=== PATIENT | male | born 1930 | race African-American/Black ===

== ENCOUNTER 2016-10-02 19:46 | Inpatient (IN) | payer MEDICAID, MEDICARE ==
[~2016-10-02] VITALS: Ht 175.3 cm; Wt 77.6 kg
[2016-10-02] MEDS ORDERED: FENT1PAT2 TD (19:57)
[2016-10-02] MEDS ORDERED: BENA20TA2 PO (19:57)
[2016-10-02] MEDS ORDERED: OXYC-128 PO (19:57)
[2016-10-02] MEDS ORDERED: BRIM5DRO3 OP (19:57)
[2016-10-02] MEDS ORDERED: ATOR20TA PO (19:57)
[2016-10-02] MEDS ORDERED: ASPI81TA31 PO (19:57)
[2016-10-02] MEDS ORDERED: QUET25TA PO (19:57)
[2016-10-02] MEDS ORDERED: CHOL10002 PO (19:57)
[2016-10-02] MEDS ORDERED: CLOP75TA33 PO (19:57)
--- NOTE | 2016-10-02 20:11 | NUR ---
Pt BIB private ambulance from [facility]. Pt is medically clear now, on 5150 hold for danger to others. Pt denies SI, HI, hallucinations. No complaints from pt, no distress noted.
--- NOTE | 2016-10-02 20:25 | NUR ---
Obtained full report from MICHAEL Samaniego RN.
--- NOTE | 2016-10-02 20:25 | NUR ---
called report to Leydi
--- NOTE | 2016-10-02 20:55 | NUR ---
Admit patient to MHU in [facility] with Dx. Psychosis. Patient is on a 5150 hold d/t GD. Hold started on 10/02/16 at 1700 and will end on 10/05/16 at 1700. Patient is A/O x 1 and able to ambulated with slow but steady gait. Medication were reconcile. Patient was calm and cooperative at time of admission; however, he refused full body assessment. we will continue to encourage.
[2016-10-02] MEDS ORDERED: ZOLPIDEM 5 MG TABLET PO PRN (21:15)
[2016-10-02] MEDS ORDERED: MAG HYDROX/AL HYDROX/SIMETH 30 ML LIQUID UDC PO PRN (21:15)
[2016-10-02] MEDS ORDERED: LORAZEPAM 0.5 MG TABLET PO PRN (21:15)
[2016-10-02] MEDS ORDERED: MAGNESIUM HYDROXIDE 30 ML LIQUID UDC PO PRN (21:15)
[2016-10-02] MEDS ORDERED: ACETAMINOPHEN 325 MG TABLET PO PRN (21:15)
[2016-10-03 00:55] VITALS: BP 152/75
--- NOTE | 2016-10-03 02:30 | NUR ---
AT APPROX 2055 ON 10/02/16, ADMIT PATIENT TO [facility] WITH DX. PSYCHOSIS. PATIENT IS ON 5150 HOLD DUE TO GD. HOLD STARTED ON 10/02/16 AT 1700 AND WILL END ON 10/05/16 AT 1700. PATIENT WAS CALM AND COOPERATIVE AT TIME OF ADMISSION; HOWEVER HE REFUSED FULL BODY ASSESSMENT. WE WILL CONTINUE TO ENCOURAGED. MEDICATIONS WERE RECONCILE. NEXT OF KIN WAS NOTIFY.
--- NOTE | 2016-10-03 06:05 | NUR ---
Patient slept for about 6 hours. He was calm; however, full body assessment was limited due to patient poor compliant with assessment. Multiples tattoos were visible in both sides of upper arms lateral aspect. one tattoo noted in left posterior fingers, one in upper back, and few in upper chest. we will continue to monitor.
--- NOTE | 2016-10-03 07:13 | NUR ---
per daughter Alisia, patient is to keep his watch on. She stated that he may get agitative if staff try to removed watch.
--- NOTE | 2016-10-03 07:25 | NUR ---
Left message to Chief Lock Operator re:new admission at [phone].
[2016-10-03 07:54] VITALS: BP 136/65
[2016-10-03] MEDS ORDERED: OXYCODONE/APAP 5-325 MG TABLET PO PRN (10:15)
[2016-10-03] MEDS ORDERED: BRIMONIDINE-P 0.1% OPHTH DROP 5 ML DROPS OP SCH (10:15)
[2016-10-03] MEDS: CHOLECALCIFEROL 1,000 UNIT TABLET PO SCH (11:28)
[2016-10-03] MEDS: CLOPIDOGREL 75 MG TABLET PO SCH (11:28)
[2016-10-03] MEDS: BENAZEPRIL HCL 20 MG TABLET PO SCH (11:44)
[2016-10-03] MEDS: ASPIRIN 81 MG TAB.CHEW PO SCH (11:45)
[2016-10-03] MEDS: BRIMONIDINE 0.2% OPHT DROP 10 ML BOTTLE EACHEYE SCH ×2 (13:18→18:24)
[2016-10-03 20:13] VITALS: BP 100/54
[2016-10-03] MEDS: QUETIAPINE FUMARATE 25 MG TABLET PO SCH (20:33)
[2016-10-03] MEDS: ATORVASTATIN 20 MG TABLET PO SCH (20:34)
--- NOTE | 2016-10-04 07:23 | NUR ---
patient slept approx 9hrs through the night. He is calm and cooperative. medication compliant. no behavioral problems noted or reported during the shift. he is A/O x 1, he is able to ambulate and use the toilet. we will continue to monitor.
[2016-10-04 07:30] VITALS: BP 118/61
[2016-10-04 08:10] LABS: BASOPHILS # (AUTO) 0.1 K/uL (0.0-8.0); BASOPHILS % (AUTO) 0.7 % (0.0-2.0); EOSINOPHILS # (AUTO) 0.5 K/uL (0.0-0.7); EOSINOPHILS % (AUTO) 6.7 % (0.0-7.0); HEMATOCRIT 37.7 % (40-50); HEMOGLOBIN 12.2 G/DL (14.0-18.0); LYMPHOCYTES # (AUTO) 2.1 K/UL (0.8-4.8); LYMPHOCYTES % (AUTO) 26.5 % (20.5-51.5); MEAN CORPUSCULAR HEMOGLOBIN 30.6 UUG (27.0-31.0); MEAN CORPUSCULAR HGB CONC 33 g/dL (32.0-37.0); MEAN CORPUSCULAR VOLUME 94.3 FL (82.0-92.0); MONOCYTES # (AUTO) 0.7 K/UL (0.1-1.30); MONOCYTES % (AUTO) 8.5 % (0.0-11.0); NEUTROPHILS # (AUTO) 4.4 K/UL (1.8-8.9); NEUTROPHILS % (AUTO) 57.6 % (38.5-71.5); PLATELET COUNT (AUTO) 216 K/UL (150-450); RED BLOOD CELL COUNT(AUTO) 3.99 MIL/UL (4.7-6.1); WHITE BLOOD COUNT (AUTO) 7.8 K/UL (4.0-11.2)
[2016-10-04 08:15] LABS: ALANINE AMINOTRANSFERASE 36 U/L (16-63); ALKALINE PHOSPHATASE 147 U/L (50-136); ASPARTATE AMINOTRANSFERASE 30 U/L (15-37); BILIRUBIN,TOTAL 0.7 mg/dL (0.2-1.0); CARBON DIOXIDE 30 mmol/L (21-32); CHLORIDE 107 mmol/L (98-107); CREATININE 1.3 mg/dL (0.6-1.3); GLUCOSE 90 mg/dL (74-106); PHOSPHOROUS 3.8 mg/dL (2.5-4.9); TOTAL PROTEIN, SERUM 6.6 g/dL (6.4-8.2); UREA NITROGEN, BLOOD 13 mg/dL (7-18)
[2016-10-04 08:24] LABS: THYROID STIMULATING HORMONE 1.245 mIU/mL (0.358-3.740)
[2016-10-04] MEDS: BENAZEPRIL HCL 20 MG TABLET PO SCH (09:04)
[2016-10-04] MEDS: ASPIRIN 81 MG TAB.CHEW PO SCH (09:04)
[2016-10-04] MEDS: CHOLECALCIFEROL 1,000 UNIT TABLET PO SCH (09:04)
[2016-10-04] MEDS: CLOPIDOGREL 75 MG TABLET PO SCH (09:04)
[2016-10-04] MEDS: BRIMONIDINE 0.2% OPHT DROP 10 ML BOTTLE EACHEYE SCH ×3 (09:04→17:34)
[2016-10-04 15:49] VITALS: BP 94/50
[2016-10-04] MEDS: ATORVASTATIN 20 MG TABLET PO SCH (20:13)
[2016-10-04] MEDS: QUETIAPINE FUMARATE 25 MG TABLET PO SCH (20:13)
[2016-10-04 20:33] VITALS: BP 109/65
--- NOTE | 2016-10-05 06:17 | NUR ---
PATIENT SLEPT APPROX 8HRS THROUGH THE NIGHT. HE IS CALM AND COOPERATIVE. A/O X 1 WITH NO CHANGES IN LOC. NO AGGRESSIVE BEHAVIOR NOTED OR REPORTED AT THIS TIME. HE HAD A SHOWER THIS MORNING. WE WILL CONTINUE TO MONITOR.
[2016-10-05 07:30] VITALS: BP 103/64
[2016-10-05] MEDS: ASPIRIN 81 MG TAB.CHEW PO SCH (08:44)
[2016-10-05] MEDS: BRIMONIDINE 0.2% OPHT DROP 10 ML BOTTLE EACHEYE SCH ×3 (08:44→17:32)
[2016-10-05] MEDS: CHOLECALCIFEROL 1,000 UNIT TABLET PO SCH (08:44)
[2016-10-05] MEDS: CLOPIDOGREL 75 MG TABLET PO SCH (08:44)
[2016-10-05] MEDS: BENAZEPRIL HCL 20 MG TABLET PO SCH (09:00)
[2016-10-05] MEDS: FENTANYL 12 MCG/HR PATCH TD SCH (09:51)
--- NOTE | 2016-10-05 14:43 | NUR ---
Initial discharge instructions:Pt resides at home with his daughter [[id number],[place], [place],[address];[phone].Per pt,he would like to return home upon discharge.SW attempted to call pt's daughter,Alisia Scott [phone] but no answer.Spoke with pt's sister,Joel [phone] who stated she would like to be involved in discharge planning.Pt provided verbal consent to involve sister in treatment/discharge planning.PAT will speak with pt,daughter,and MD regarding appropriate discharge plans.SW will form a safe and proper discharge.
[2016-10-05 16:49] VITALS: BP 103/60
[2016-10-05] MEDS: ATORVASTATIN 20 MG TABLET PO SCH (20:45)
[2016-10-05] MEDS: QUETIAPINE FUMARATE 25 MG TABLET PO SCH (20:46)
[2016-10-05 20:49] VITALS: BP 100/58
--- NOTE | 2016-10-05 22:00 | NUR ---
received to care, lying in bed, pleasant upon approach. compliant with medications, and staff direction. bedtime snack and fluids were given. as of 2200, he appears to be asleep. no distress noted. will continue to monitor closely.
--- NOTE | 2016-10-06 06:00 | NUR ---
slept 8.5 hours, last night. continues to sleep. but is easy to awaken. no distress noted. will continue to monitor closely.
[2016-10-06 07:56] VITALS: BP 98/56
[2016-10-06] MEDS: BENAZEPRIL HCL 20 MG TABLET PO SCH (08:08)
[2016-10-06] MEDS: ASPIRIN 81 MG TAB.CHEW PO SCH (08:57)
[2016-10-06] MEDS: CHOLECALCIFEROL 1,000 UNIT TABLET PO SCH (08:57)
[2016-10-06] MEDS: CLOPIDOGREL 75 MG TABLET PO SCH (08:57)
[2016-10-06] MEDS: BRIMONIDINE 0.2% OPHT DROP 10 ML BOTTLE EACHEYE SCH ×3 (08:59→17:08)
[2016-10-06 16:38] VITALS: BP 102/56
[2016-10-06 20:00] VITALS: BP 112/64
[2016-10-06] MEDS: QUETIAPINE FUMARATE 25 MG TABLET PO SCH (20:23)
--- NOTE | 2016-10-06 21:01 | NUR ---
Pt received in his room lying in bed awake,flat affect mood, isolative and withdrawn, Pt encouraged to make needs known, compliant with meds, will continue to monitor closely.
[2016-10-07 07:27] LABS: BASOPHILS # (AUTO) 0.1 K/uL (0.0-8.0); EOSINOPHILS # (AUTO) 0.7 K/uL (0.0-0.7); EOSINOPHILS % (AUTO) 8.4 % (0.0-7.0); HEMOGLOBIN 12.3 G/DL (14.0-18.0); LYMPHOCYTES # (AUTO) 2.3 K/UL (0.8-4.8); LYMPHOCYTES % (AUTO) 28.8 % (20.5-51.5); MEAN CORPUSCULAR HEMOGLOBIN 30.5 UUG (27.0-31.0); MEAN CORPUSCULAR HGB CONC 33 g/dL (32.0-37.0); MEAN CORPUSCULAR VOLUME 93.8 FL (82.0-92.0); MONOCYTES # (AUTO) 0.7 K/UL (0.1-1.30); MONOCYTES % (AUTO) 9.1 % (0.0-11.0); NEUTROPHILS # (AUTO) 4.2 K/UL (1.8-8.9); NEUTROPHILS % (AUTO) 52.7 % (38.5-71.5); PLATELET COUNT (AUTO) 238 K/UL (150-450); RED BLOOD CELL COUNT(AUTO) 4.05 MIL/UL (4.7-6.1)
[2016-10-07 07:30] VITALS: BP 127/72
[2016-10-07 07:52] LABS: ALANINE AMINOTRANSFERASE 28 U/L (16-63); ALKALINE PHOSPHATASE 143 U/L (50-136); ASPARTATE AMINOTRANSFERASE 26 U/L (15-37); BILIRUBIN,TOTAL 0.6 mg/dL (0.2-1.0); CARBON DIOXIDE 30 mmol/L (21-32); CHLORIDE 106 mmol/L (98-107); CREATININE 1.2 mg/dL (0.6-1.3); GLUCOSE 87 mg/dL (74-106); MAGNESIUM 2.1 mg/dL (1.8-2.4); PHOSPHOROUS 3.9 mg/dL (2.5-4.9); POTASSIUM 4.3 mmol/L (3.5-5.1); TOTAL PROTEIN, SERUM 6.7 g/dL (6.4-8.2); UREA NITROGEN, BLOOD 18 mg/dL (7-18)
[2016-10-07] MEDS: CLOPIDOGREL 75 MG TABLET PO SCH (08:43)
[2016-10-07] MEDS: CHOLECALCIFEROL 1,000 UNIT TABLET PO SCH (08:43)
[2016-10-07] MEDS: ASPIRIN 81 MG TAB.CHEW PO SCH (08:43)
[2016-10-07] MEDS: BRIMONIDINE 0.2% OPHT DROP 10 ML BOTTLE EACHEYE SCH ×3 (08:44→17:14)
[2016-10-07 15:08] VITALS: BP 114/61
[2016-10-07] MEDS: QUETIAPINE FUMARATE 25 MG TABLET PO SCH (20:09)
[2016-10-07 20:21] VITALS: BP 117/62
--- NOTE | 2016-10-07 22:00 | NUR ---
received to care, lying in bed, pleasant upon approach. compliant with medications, and staff direction. PRNpercocet was given at 2008 for lower back pain, which was effective by 2099. bedtime snack and fluids were given. as of 2199, he appears to be asleep. no distress noted. will continue to monitor closely.
--- NOTE | 2016-10-08 05:38 | NUR ---
slept well last night, 6.25 hours, total. continues to sleep, intermittently. offered a shower, but he refused. appears to be falling back to sleep. no distress noted. will continue to monitor closely.
[2016-10-08 07:30] VITALS: BP 127/70
[2016-10-08] MEDS: CHOLECALCIFEROL 1,000 UNIT TABLET PO SCH (10:06)
[2016-10-08] MEDS: ASPIRIN 81 MG TAB.CHEW PO SCH (10:06)
[2016-10-08] MEDS: CLOPIDOGREL 75 MG TABLET PO SCH (10:06)
[2016-10-08] MEDS: FENTANYL 12 MCG/HR PATCH TD SCH (10:17)
[2016-10-08] MEDS: BRIMONIDINE 0.2% OPHT DROP 10 ML BOTTLE EACHEYE SCH ×3 (10:27→17:48)
[2016-10-08 15:00] VITALS: BP 108/62
[2016-10-08 20:48] VITALS: BP 105/67
[2016-10-08] MEDS: QUETIAPINE FUMARATE 25 MG TABLET PO SCH (21:00)
[2016-10-09 07:30] VITALS: BP 120/65
[2016-10-09] MEDS: CLOPIDOGREL 75 MG TABLET PO SCH (09:17)
[2016-10-09] MEDS: BRIMONIDINE 0.2% OPHT DROP 10 ML BOTTLE EACHEYE SCH ×3 (09:17→18:58)
[2016-10-09] MEDS: CHOLECALCIFEROL 1,000 UNIT TABLET PO SCH (09:17)
[2016-10-09] MEDS: ASPIRIN 81 MG TAB.CHEW PO SCH (09:20)
[2016-10-09] MEDS: FENTANYL 12 MCG/HR PATCH TD SCH (10:28)
--- NOTE | 2016-10-09 10:29 | NUR ---
nursing: Patient's Fentanyl patch was noted not to be in place. (it was applied on 10/08/16 am). Pt stated it fell off. A new Fentanly Patch was applied.
[2016-10-09] MEDS: QUETIAPINE FUMARATE 25 MG TABLET PO SCH (20:23)
[2016-10-09 21:00] VITALS: BP 132/93
--- NOTE | 2016-10-10 06:54 | NUR ---
GPS: REMAIN CALM AND COOPERATIVE WITH CARE. NO AGITATION NOTED THIS TIME. SLEPT06:30 HRS THROUGH THE NIGHT. CONTINUE PLAN OF CARE.
[2016-10-10 07:30] VITALS: BP 104/56
[2016-10-10] MEDS: CHOLECALCIFEROL 1,000 UNIT TABLET PO SCH (08:45)
[2016-10-10] MEDS: ASPIRIN 81 MG TAB.CHEW PO SCH (08:45)
[2016-10-10] MEDS: CLOPIDOGREL 75 MG TABLET PO SCH (08:45)
[2016-10-10] MEDS: BRIMONIDINE 0.2% OPHT DROP 10 ML BOTTLE EACHEYE SCH ×3 (08:46→16:13)
[2016-10-10 16:43] VITALS: BP 128/87
[2016-10-10] MEDS: QUETIAPINE FUMARATE 25 MG TABLET PO SCH (20:14)
[2016-10-10 21:03] VITALS: BP 130/73
--- NOTE | 2016-10-11 07:10 | NUR ---
Patient slept 7.30hrs through the night. Calm and cooperative. Medication compliant at this time.
[2016-10-11 07:30] VITALS: BP 114/67
[2016-10-11] MEDS: BRIMONIDINE 0.2% OPHT DROP 10 ML BOTTLE EACHEYE SCH ×3 (08:24→16:39)
[2016-10-11] MEDS: CHOLECALCIFEROL 1,000 UNIT TABLET PO SCH (08:25)
[2016-10-11] MEDS: ASPIRIN 81 MG TAB.CHEW PO SCH (08:25)
[2016-10-11] MEDS: CLOPIDOGREL 75 MG TABLET PO SCH (08:25)
[2016-10-11] MEDS: FENTANYL 12 MCG/HR PATCH TD SCH (09:00)
--- NOTE | 2016-10-11 09:31 | NUR ---
GPS: Nursing Notes: Fentanyl Patch: Fentanyl patch not given because it was given on 10/09/16. Due day 10/12/16, spoke with the pharmacist, but she could not fix the timing on EMAR, charge nurse informed, continue to monitor patient, continue with treatment plan.
[2016-10-11 16:00] VITALS: BP 136/75
[2016-10-11 20:00] VITALS: BP 122/74
[2016-10-11] MEDS: QUETIAPINE FUMARATE 25 MG TABLET PO SCH (20:10)
--- NOTE | 2016-10-12 06:14 | NUR ---
GPS: REMAIN CALM AND COOPERATIVE WITH MEDS AND CARE. SLEPT 08:30 HRS THROUGH THE NIGHT. CONTINUE PLAN OF CARE.
[2016-10-12 07:57] VITALS: BP 134/70
[2016-10-12] MEDS: CHOLECALCIFEROL 1,000 UNIT TABLET PO SCH (08:51)
[2016-10-12] MEDS: ASPIRIN 81 MG TAB.CHEW PO SCH (08:51)
[2016-10-12] MEDS: CLOPIDOGREL 75 MG TABLET PO SCH (08:51)
[2016-10-12] MEDS: FENTANYL 12 MCG/HR PATCH TD SCH (08:51)
[2016-10-12] MEDS: BRIMONIDINE 0.2% OPHT DROP 10 ML BOTTLE EACHEYE SCH ×3 (09:06→16:09)
[2016-10-12 11:28] LABS: BASOPHILS # (AUTO) 0.1 K/uL (0.0-8.0); BASOPHILS % (AUTO) 1.2 % (0.0-2.0); EOSINOPHILS # (AUTO) 0.6 K/uL (0.0-0.7); EOSINOPHILS % (AUTO) 7.6 % (0.0-7.0); HEMATOCRIT 40.4 % (40-50); HEMOGLOBIN 13.1 G/DL (14.0-18.0); LYMPHOCYTES # (AUTO) 1.7 K/UL (0.8-4.8); MEAN CORPUSCULAR HEMOGLOBIN 30.8 UUG (27.0-31.0); MEAN CORPUSCULAR HGB CONC 32 g/dL (32.0-37.0); MEAN CORPUSCULAR VOLUME 95.4 FL (82.0-92.0); MONOCYTES # (AUTO) 0.7 K/UL (0.1-1.30); MONOCYTES % (AUTO) 9.2 % (0.0-11.0); NEUTROPHILS # (AUTO) 4.5 K/UL (1.8-8.9); PLATELET COUNT (AUTO) 238 K/UL (150-450); RED BLOOD CELL COUNT(AUTO) 4.23 MIL/UL (4.7-6.1); WHITE BLOOD COUNT (AUTO) 7.6 K/UL (4.0-11.2)
[2016-10-12 11:43] LABS: ALANINE AMINOTRANSFERASE 31 U/L (16-63); ALKALINE PHOSPHATASE 142 U/L (50-136); ASPARTATE AMINOTRANSFERASE 23 U/L (15-37); BILIRUBIN,TOTAL 0.5 mg/dL (0.2-1.0); CARBON DIOXIDE 29 mmol/L (21-32); CHLORIDE 106 mmol/L (98-107); CREATININE 1.4 mg/dL (0.6-1.3); GLUCOSE 111 mg/dL (74-106); MAGNESIUM 2.4 mg/dL (1.8-2.4); PHOSPHOROUS 2.2 mg/dL (2.5-4.9); POTASSIUM 4.2 mmol/L (3.5-5.1); UREA NITROGEN, BLOOD 18 mg/dL (7-18)
[2016-10-12] MEDS ORDERED: NEUTRA PHOS PACKET PO ONE (15:30)
[2016-10-12 16:58] VITALS: BP 120/69
[2016-10-12] MEDS: QUETIAPINE FUMARATE 25 MG TABLET PO SCH (20:38)
[2016-10-12 21:30] VITALS: BP 116/68
--- NOTE | 2016-10-12 22:00 | NUR ---
received to care, lying in bed, pleasant upon approach. compliant with medications, and staff direction. bedtime snack and fluids were given. PRN tylenol was given at 2037, for lower back pain 4/10, on pain scale. as of 2199, he appears to be asleep. no distress noted. will continue to monitor closely.
--- NOTE | 2016-10-13 06:00 | NUR ---
slept well last night, 8 hours, total. continues to sleep, but easy to awaken. no distress noted. will continue to monitor closely.
[2016-10-13 07:30] VITALS: BP 107/57
[2016-10-13] MEDS: CHOLECALCIFEROL 1,000 UNIT TABLET PO SCH (08:26)
[2016-10-13] MEDS: ASPIRIN 81 MG TAB.CHEW PO SCH (08:26)
[2016-10-13] MEDS: BRIMONIDINE 0.2% OPHT DROP 10 ML BOTTLE EACHEYE SCH ×2 (08:26→12:37)
[2016-10-13] MEDS: CLOPIDOGREL 75 MG TABLET PO SCH (08:27)
[2016-10-13 08:45] LABS: CARBON DIOXIDE 30 mmol/L (21-32); CHLORIDE 103 mmol/L (98-107); CREATININE 1.3 mg/dL (0.6-1.3); GLUCOSE 87 mg/dL (74-106); POTASSIUM 4.2 mmol/L (3.5-5.1); UREA NITROGEN, BLOOD 18 mg/dL (7-18)
--- NOTE | 2016-10-13 09:24 | NUR ---
DC Note: Patient will be discharged today to [facility] [[address], [place] [address]; ] via private ambulance at 1:00 pm. Please schedule an ambulance for the patient. Spoke with Azeb at the facility who stated they will accept the patient today. Patient's daughter, Alisia [phone] is aware and agreeable with discharge plans as well. Patient is aware and agreeable with discharge plans. Patient will follow-up with (Commissioning Editor) and (Psychiatrist) at the facility.
--- NOTE | 2016-10-13 11:06 | NUR ---
GPS: Nursing Notes: Refusing For Picture to be Taken: Patient refusing for picture to be taken, "There is nothing wrong with my back..", "I am leaving today.. Thank you..", continue with treatment plan.
--- NOTE | 2016-10-13 13:45 | NUR ---
GPS: Nursing Notes: Discharge Notes: Patient is awake and responding to his name, cooperative with nursing care, compliant with his medications, denies any SI/HI, denies any AH/VH, denies any pain or discomfort, denies any SOB, discharge to [facility] at [id number] [place] [address] [phone] , took all his belongings with him, report given to Nina RN mixing supervisor, transported via ambulance to facility. Patient's daughter, Alisia [phone] is aware and agreeable with discharge plans as well. Patient is aware and agreeable with discharge plans. Patient will follow-up with (Clearing Distribution Clerk) and (Psychiatrist) at the facility.
== END 2016-10-13 13:45 | DRG 885 ==
LOC: ER 19:49 → GPS 20:38
PROVIDERS: ADMIT Psychiatry & Neurology Psychiatry; ATTEND Psychiatry & Neurology Psychiatry
DX: F29 Unspecified psychosis not due to a substance or known physiological condition (principal); N17.0 Acute kidney failure with tubular necrosis; F03.91 Unspecified dementia, unspecified severity, with behavioral disturbance; E44.0 Moderate protein-calorie malnutrition; I10 Essential (primary) hypertension; I25.10 Atherosclerotic heart disease of native coronary artery without angina pectoris; J44.9 Chronic obstructive pulmonary disease, unspecified; H40.9 Unspecified glaucoma; D53.9 Nutritional anemia, unspecified; G40.909 Epilepsy, unspecified, not intractable, without status epilepticus; E83.39 Other disorders of phosphorus metabolism; Z79.899 Other long term (current) drug therapy
CPT/HCPCS: 36415; 83735; 84100; 84443; 85025; 93005; 97161